=== PATIENT | female | born 1935 | race Caucasian/White ===

== ENCOUNTER 2020-06-19 07:15 | Day surgery (SDC) | payer OTHER ==
[~2020-06-19] VITALS: Ht 157.5 cm; Wt 84.4 kg
[~2020-06-19 07:15] MED LIST: ALEN70 PO; Aspir 8181 MG PO; CLOP75 PO; COMBIVENT RESPIM4 G1 INH; EUTHYROX125 MCG PO; HYDROCHLOROTH12.5 MG PO; LOSA50 PO; METO100ER PO; VITAMIN B-625 MG PO; Zocor40 MG PO
== END 2020-06-19 09:33 | disposition home or self-care (01) ==
LOC: ORSCSDS 07:15
PROVIDERS: Ophthalmology
PROC: 08RJ3JZ Replacement of Right Lens with Synthetic Substitute, Percutaneous Approach (ICD-10-PCS; principal; 2020-06-19 08:30)
DX: H25.11 Age-related nuclear cataract, right eye (principal); I10 Essential (primary) hypertension; E11.9 Type 2 diabetes mellitus without complications; E03.9 Hypothyroidism, unspecified; N18.9 Chronic kidney disease, unspecified; Z79.899 Other long term (current) drug therapy; Z79.82 Long term (current) use of aspirin
CPT/HCPCS: A9270; J2001; J2250; J3010; J3301; V2632

== ENCOUNTER 2020-11-18 16:53 | Emergency (ER) | payer OTHER ==
[~2020-11-18] VITALS: Ht 157.5 cm; Wt 82.5 kg
== END 2020-11-18 19:44 | disposition home or self-care (01) ==
LOC: ER 16:53
DX: M79.605 Pain in left leg (principal); I10 Essential (primary) hypertension; E03.9 Hypothyroidism, unspecified; Z79.02 Long term (current) use of antithrombotics/antiplatelets; Z79.899 Other long term (current) drug therapy; Z88.5 Allergy status to narcotic agent; Z87.891 Personal history of nicotine dependence
CPT/HCPCS: 93971; 96374; 99284-25; A9270; J1885

== ENCOUNTER 2020-11-26 04:29 | Emergency (ER) | payer OTHER ==
[~2020-11-26] VITALS: Ht 157.5 cm; Wt 83.9 kg
[2020-11-26] MEDS ORDERED: Cyclobenzaprine5 MG PO (06:06)
== END 2020-11-26 06:13 | disposition home or self-care (01) ==
LOC: ER 04:29
DX: M79.10 Myalgia, unspecified site (principal); M79.605 Pain in left leg; Z88.5 Allergy status to narcotic agent; Z88.6 Allergy status to analgesic agent; Z91.02 Food additives allergy status; Z79.899 Other long term (current) drug therapy; Z86.73 Personal history of transient ischemic attack (TIA), and cerebral infarction without residual deficits; Z87.891 Personal history of nicotine dependence
CPT/HCPCS: 99283; A9270